=== PATIENT | male | born 1950 | race Caucasian/White ===

== ENCOUNTER → 2018-05-10 | Outpatient (CLI) | payer MEDICARE, BC | LOC: LAB 07:04 | DX: Z13.6 Encounter for screening for cardiovascular disorders (principal) ==

== ENCOUNTER → 2018-10-25 | Outpatient (CLI) | payer MEDICARE, BC | LOC: RAD 11:49 | DX: M71.21 Synovial cyst of popliteal space [Baker], right knee (principal); S83.206A Unspecified tear of unspecified meniscus, current injury, right knee, initial encounter; M22.41 Chondromalacia patellae, right knee; S72.434A Nondisplaced fracture of medial condyle of right femur, initial encounter for closed fracture | CPT/HCPCS: A9585 ==